=== PATIENT | male | born 1965 | race Caucasian/White ===

== ENCOUNTER → 2016-09-29 | Outpatient (CLI) | payer BC, OTHER ==
[~2016-09-29] MED LIST: METOPROLOL SUCC25 M1 PO; PRADAXA150 MG PO; TAMBOCOR 100 M100 M1 PO
[2016-09-29 08:23] LABS: HEMATOCRIT 46.9 % (42.0-52.0); HEMOGLOBIN 16.3 gm/dL (14.0-18.0); MCH 30.9 pg (26.0-34.0); MCHC 34.8 g/dL (28.0-37.0); MCV 88.6 fL (80.0-100.0); RBC 5.29 mil/uL (4.50-6.00); RDW 13.6 % (10.5-14.5); WBC 7.3 thou/uL (4.0-11.0)
[2016-09-29 09:02] LABS: CALCIUM 8.7 mg/dL (8.5-10.1); POTASSIUM 3.7 mmol/L (3.5-5.1)
[2016-09-29 09:06] LABS: ALBUMIN 3.6 g/dL (3.4-5.0); TOTAL BILIRUBIN 0.5 mg/dL (<0.1-1.0); TOTAL PROTEIN 7.5 g/dL (6.4-8.2)
== END ==
LOC: CAT 07:46
PROVIDERS: Internal Medicine Cardiovascular Disease
DX: I48.91 Unspecified atrial fibrillation (principal)

== ENCOUNTER 2016-10-01 06:30 | Observation (INO) | payer OTHER ==
[~2016-10-01] VITALS: Ht 182.9 cm; Wt 121.5 kg
--- NOTE | ~2016-10-01 | EKG ---
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
[2016-10-01] MEDS ORDERED: PRADAXA150 MG PO (06:52)
[2016-10-01 07:02] VITALS: BP 139/91
[2016-10-01 07:16] LABS: HEMATOCRIT 50.8 % (42.0-52.0); HEMOGLOBIN 17.3 gm/dL (14.0-18.0); MCH 30.5 pg (26.0-34.0); MCHC 34.1 g/dL (28.0-37.0); MCV 89.5 fL (80.0-100.0); PLATELET COUNT 225 thou/uL (150-400); RBC 5.67 mil/uL (4.50-6.00); RDW 13.6 % (10.5-14.5); WBC 9.2 thou/uL (4.0-11.0)
[2016-10-01 07:18] LABS: APTT 33.8 Seconds (24.5-32.8)
[2016-10-01 07:25] LABS: MANUAL DIFF YES
[2016-10-01 07:45] LABS: ALBUMIN 3.9 g/dL (3.4-5.0); CALCIUM 8.9 mg/dL (8.5-10.1); CREATININE 0.9 mg/dL (0.7-1.3); POTASSIUM 3.8 mmol/L (3.5-5.1); TOTAL BILIRUBIN 0.4 mg/dL (<0.1-1.0); TOTAL PROTEIN 8.3 g/dL (6.4-8.2)
[2016-10-01 07:56] LABS: ABSOLUTE NEUTROPHILS 5.4 thou/uL (1.4-8.2); TOTAL CELL COUNT 100
[2016-10-01 07:57] LABS: ANISOCYTOSIS SLIGHT
[2016-10-01 13:30] VITALS: BP 134/93
[2016-10-01 19:41] VITALS: BP 134/72
[2016-10-02 00:44] VITALS: BP 124/81
[2016-10-02 04:00] VITALS: BP 128/74
[2016-10-02 07:00] VITALS: BP 118/77
[2016-10-02] MEDS ORDERED: TAMBOCOR 100 M100 M1 PO (08:09)
[2016-10-02] MEDS ORDERED: METOPROLOL SUCC25 M1 PO (08:09)
[2016-10-02 09:01] VITALS: BP 118/77
== END 2016-10-02 10:55 | disposition home or self-care (01) ==
LOC: CATH → 2N 13:28 → CATH 15:57 → 2N 10-02 10:55
PROVIDERS: Internal Medicine Cardiovascular Disease
DX: I48.0 Paroxysmal atrial fibrillation (principal); M19.90 Unspecified osteoarthritis, unspecified site; E78.5 Hyperlipidemia, unspecified; I47.1 Supraventricular tachycardia; Z87.891 Personal history of nicotine dependence; Z72.89 Other problems related to lifestyle
CPT/HCPCS: 62110; 62900; 65020; 65040; 65043; 70005